=== PATIENT | male | born 1965 | race Caucasian/White ===

== ENCOUNTER 2019-04-08 07:04 | Day surgery (SDC) | payer OTHER, BC ==
[~2019-04-08] VITALS: Ht 177.8 cm; Wt 117.5 kg
[2019-04-08 07:49] VITALS: BP 135/86
[2019-04-08 14:57] VITALS: BP 129/62
== END 2019-04-08 14:15 | disposition home or self-care (01) ==
LOC: GI 07:04 → OR 08:30 → GI 09:00
DX: Z12.11 Encounter for screening for malignant neoplasm of colon (principal); K63.5 Polyp of colon; K63.89 Other specified diseases of intestine; E11.9 Type 2 diabetes mellitus without complications; Z79.899 Other long term (current) drug therapy; Z79.84 Long term (current) use of oral hypoglycemic drugs; Z87.891 Personal history of nicotine dependence; Z98.890 Other specified postprocedural states
CPT/HCPCS: 45378; J1200; J1610; J2250; J2310; J3010; J3490